=== PATIENT | female | born 1970 | race Caucasian/White ===

== ENCOUNTER 2019-06-02 10:45 | Emergency (ER) | payer BC ==
--- NOTE | 2019-06-02 10:50 | UC ---
Throat Pain/Nasal Paul HPI - HPI Summary HPI Summary: 49 yo female presents with sore throat and fever. 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 Yesterday noticed a mild sore throat that worsened last night. In the middle of the night she felt feverish - did not take her temperature. This morning she took tylenol around 0500. She is eating, drinking, and tolerating po well. She has had a slight non productive cough for a week or so. Denies sinus symptoms, SOB, rash, chest pain, abdominal pain, n/v. - History of Current Complaint Stated Complaint: SORE THROAT FEVER Time Seen by Provider: 06/02/19 10:50 Hx Obtained From: Patient Hx Last Menstrual Period: 08/16/15 Onset/Duration: Gradual Onset Severity: Moderate Pain Intensity: 6 Pain Scale Used: 0-10 Numeric - Allergies/Home Medications Allergies/Adverse Reactions: Allergies Allergy/AdvReac Type Severity Reaction Status Date / Time Penicillins Allergy Hives Verified 06/02/19 10:58 Sulfa (Sulfonamide Allergy Hives Verified 06/02/19 10:58 Antibiotics) Home Medications: Home Medications Acetaminophen [Tylenol Extra Strength] 1,000 mg PO ONCE PRN 06/02/19 [History Confirmed 06/02/19] PMH/Surg Hx/FS Hx/Imm Hx - Additional Past Medical History Additional PMH: None - Surgical History Surgical History: None - Family History Known Family History: Positive: Hypertension, Diabetes, Seizure Disorder - Social History Occupation: Employed Full-time Lives: With Family Alcohol Use: Daily Substance Use Type: None Smoking Status (MU): Never Smoked Tobacco Have You Smoked in the Last Year: No Review of Systems All Other Systems Reviewed And Are Negative: No Constitutional: Positive: Fever Skin: Positive: Negative Eyes: Positive: Negative ENT: Positive: Sore Throat Respiratory: Positive: Negative Cardiovascular: Positive: Negative Gastrointestinal: Positive: Negative Neurological: Positive: Negative Psychological: Positive: Negative Physical Exam - Summary Physical Exam Summary: GENERAL: NAD. WDWN. No pain distress. SKIN: No rashes, sores, lesions, or open wounds. HEENT: Head: AT/NC Eyes: Conjunctiva clear without inflammation or discharge. Ears: Hearing grossly normal. TMs intact, no bulging, erythema, or edema. Nose: Nasal mucosa pink and moist. NTTP maxillary and frontal sinus. Throat: Posterior oropharynx mild erythema and 2+ tonsillar enlargement. No exudates. Uvula midline. No hoarse voice or muffled voice. NECK: Supple. Moderate tonsillar LAD R>L mild TTP. CHEST: Coarse breath sounds PEREZ otherwise clear. No accessory muscle use. Breathing comfortably and in no distress. CV: RRR.. Pulses intact. Cap refill <2seconds NEURO: Alert. PSYCH: Age appropriate behavior. Triage Information Reviewed: Yes Vital Signs: Vital Signs: Temp Pulse Resp BP Pulse Ox 102.3 F 116 18 147/87 99 06/02/19 10:53 06/02/19 10:53 06/02/19 10:53 06/02/19 10:53 06/02/19 10:53 Laboratory Tests 06/02/19 10:57 Group A Strep Rapid Positive A Vital Signs: Temp Pulse Resp BP Pulse Ox 101.4 F 103 18 147/87 99 06/02/19 11:38 06/02/19 11:38 06/02/19 10:53 06/02/19 10:53 06/02/19 10:53 Vital Signs Reviewed: Yes Diagnostics - Radiology CXR Radiology Interpretation Completed By: Radiologist Summary of Radiographic Findings: IMPRESSION: NO EVIDENCE FOR ACTIVE CARDIOPULMONARY DISEASE. Throat Pain/Nasal Course/Dx - Course Course Of Treatment: CXR as above. POC strep positive. In the clinic she was given 800mg ibuprofen for her fever. Will rx for cefdinir as she has hives with PCN. No azithromycin at this time as she has taken this quite often in her lifetime and may have a degree of resistance/tolerance. - Differential Dx/Diagnosis Provider Diagnosis: Strep throat Discharge ED - Sign-Out/Discharge Documenting (check all that apply): Patient Departure All imaging exams completed and their final reports reviewed: Yes - Discharge Plan Condition: Stable Disposition: HOME Prescriptions: Cefdinir [Cefdinir 300 MG CAP] 300 mg PO BID #14 cap Patient Education Materials: Strep Throat (ED) Forms: *Work Release Referrals: Ember Feldman MD [Primary Care Provider] - Additional Instructions: If you develop a fever, shortness of breath, chest pain, new or worsening symptoms - please call your PCP or go to the ED immediately. Continue taking tylenol/ibuprofen as directed for your fever and discomfort - Billing Disposition and Condition Condition: STABLE Disposition: Home
[2019-06-02 10:54] VITALS: BP 147/87
[2019-06-02] MEDS ORDERED: Ibuprofen TAB* 400 MG PO ONE (10:55)
== END 2019-06-02 11:44 | disposition home or self-care (01) ==
LOC: UCCORT 10:45
DX: J02.0 Streptococcal pharyngitis (principal); Z88.0 Allergy status to penicillin; Z88.2 Allergy status to sulfonamides
CPT/HCPCS: 71046; 87651; 99202; A9270-GY; G0463